=== PATIENT | female | born 1960 ===

== ENCOUNTER 2024-05-29 23:21 | Inpatient (IN) | payer OTHER ==
[~2024-05-29] VITALS: Ht 160 cm; Wt 159.0 kg
[2024-05-29] MEDS ORDERED: Morphine Sulfate 4 MG/1 ML Injection IV ONE (23:30)
[2024-05-29] MEDS ORDERED: NS 1,000 ML IV SCH (23:30)
[2024-05-29] MEDS ORDERED: Ondansetron HCl 2 MG / ML 2ML Vial IV ONE (23:30)
[2024-05-30 00:50] LABS: BASOPHILS ABSOLUTE AUTO 0.02 K/mm3 (0.00-0.23); BASOPHILS PERCENT AUTO 0 % (0-2); EOSINOPHILS ABSOLUTE AUTO 0.14 K/mm3 (0.00-0.68); EOSINOPHILS PERCENT AUTO 1 % (0-6); Hematocrit 38.2 % (33.0-51.0); Hemoglobin 11.9 g/dL (11.5-16.0); IMMATURE GRAN ABSOLUTE AUTO 0.03 K/mm3 (0.00-0.10); IMMATURE GRAN PERCENT AUTO 0 % (0-1); LYMPHOCYTES PERCENT AUTO 5 % (21-46); MONOCYTES ABSOLUTE AUTO 0.46 K/mm3 (0.16-1.47); MONOCYTES PERCENT AUTO 4 % (4-13); Mean Corpuscular HGB 24.8 pg (26.0-34.0); Mean Corpuscular HGB Conc 31.2 g/dL (31.5-36.5); Mean Corpuscular Volume 80 fL (80-100); Mean Platelet Volume 9.1 fL (9.1-12.4); NEUTROPHILS ABSOLUTE AUTO 9.42 K/mm3 (1.96-9.15); NEUTROPHILS PERCENT AUTO 89 % (41-73); Platelet Count 217 K/mm3 (150-400); RDW Coefficient Variation 22.8 % (11.7-14.2); RDW Standard Deviation 66.4 fL (35.1-46.3); White Blood Cell Count 10.57 K/mm3 (4.00-11.30)
[2024-05-30 01:16] LABS: Magnesium, Blood 2.1 mg/dL (1.6-2.4)
[2024-05-30 01:20] LABS: Albumin, Blood 3.4 g/dL (3.4-5.0); Albumin/Globulin Ratio 0.6 (0.8-1.8); Bilirubin, Total 0.8 mg/dL (0.1-1.0); Bun/Creatinine Ratio 19.8 (12.0-20.0); Calcium, Blood 6.3 mg/dL (8.5-10.1); Creatinine, Blood 8.94 mg/dL (0.40-1.00); Globulin, Blood 6.1 g/dL (2.2-4.0); Potassium, Blood 7.3 mmol/L (3.5-5.5); Total Protein, Blood 9.5 g/dL (6.4-8.2)
[2024-05-30] MEDS ORDERED: Sodium Zirconium Cyclosilicate 10 GM Packet PO ONE (01:20)
[2024-05-30] MEDS ORDERED: Calcium Gluconate 10% 100 MG/ML INJ IV ONE (01:20)
[2024-05-30] MEDS ORDERED: Dextrose 50% 50 ML Syringe IV ONE (01:20)
[2024-05-30] MEDS ORDERED: Insulin Regular 100 Unit/ML 1ML Dose IV ONE (01:20)
[2024-05-30] MEDS ORDERED: Albuterol 2.5 MG/3 ML VIAL INH SCH (01:20)
[2024-05-30] MEDS ORDERED: Furosemide 10 MG/ML 4ML Vial IV ONE (01:20)
[2024-05-30] MEDS ORDERED: Dextrose 50% 50 ML Vial IV ONE (01:35)
[2024-05-30] MEDS ORDERED: CALCIUM GLUC IN NACL, ISO-OSM 50 ML IV ONE (01:45)
[2024-05-30 03:55] LABS: Bun/Creatinine Ratio 19.9 (12.0-20.0); Calcium, Blood 6.2 mg/dL (8.5-10.1); Creatinine, Blood 8.65 mg/dL (0.40-1.00)
[2024-05-30 03:59] LABS: Potassium, Blood 5.3 mmol/L (3.5-5.5)
[2024-05-30] MEDS ORDERED: NS 1,000 ML IV SCH ×3 (04:45→06:35)
[2024-05-30] MEDS ORDERED: ZINC OXIDE57 GM TOP (04:49)
[2024-05-30] MEDS ORDERED: ACET325 PO (04:50)
[2024-05-30] MEDS ORDERED: BISA5EC PO (04:51)
[2024-05-30] MEDS ORDERED: BUME2 PO (04:51)
[2024-05-30] MEDS ORDERED: DICLOFENAC SOD100 GM TP (04:52)
[2024-05-30] MEDS ORDERED: Lisinopril2.5 MG PO (04:53)
[2024-05-30] MEDS ORDERED: DOXE10 PO (04:53)
[2024-05-30] MEDS ORDERED: MIRALAX17 GM PO (04:53)
[2024-05-30] MEDS ORDERED: Percocet 5-3251 EACH PO (04:55)
[2024-05-30] MEDS ORDERED: ONDA4ODT MM (04:55)
[2024-05-30] MEDS ORDERED: KLAYESTA15 GM TP (04:55)
[2024-05-30] MEDS ORDERED: POTA10T PO (04:56)
[2024-05-30] MEDS ORDERED: SERT100 PO (04:56)
[2024-05-30] MEDS ORDERED: ROPI1 PO (04:56)
[2024-05-30] MEDS ORDERED: SPIR50 PO (04:57)
[2024-05-30] MEDS ORDERED: Ondansetron HCl 2 MG / ML 2ML Vial IV PRN (05:20)
[2024-05-30] MEDS ORDERED: FentaNYL Citrate 50 MCG/ML 2 ML Injection IV PRN (05:30)
[2024-05-30 05:55] VITALS: BP 138/101
[2024-05-30 05:55] LABS: Bun/Creatinine Ratio 19.5 (12.0-20.0); Calcium, Blood 6.5 mg/dL (8.5-10.1); Creatinine, Blood 8.81 mg/dL (0.40-1.00); Potassium, Blood 5.1 mmol/L (3.5-5.5)
--- NOTE | 2024-05-30 07:42 | NUR ---
ADMISSION NOTE REPORT RECIVED BY THIS RN FROM [facility] @ [facility]18 PT ARRIVED TO PCU 20 @ [facility] 0533, WAS SLID OVER TO PCU BED BY MEDICAL STAFF PT IS ALERT, HOLDING CONVERSATION, MOVING ALL EXTREMITIES, OBEYS COMMANDS, ABLE TO MAKE NEEDS KNOWN, VSS.
[2024-05-30] MEDS ORDERED: MELO7.5 PO (08:26)
[2024-05-30] MEDS ORDERED: EPIPEN0.3 MG/0.3 IM (08:27)
[2024-05-30] MEDS ORDERED: WEGOVY2.4 MG/0.7 SC (08:29)
[2024-05-30] MEDS ORDERED: METO5 PO (08:30)
[2024-05-30 09:02] LABS: Albumin, Blood 3.1 g/dL (3.4-5.0); Anion Gap 21 mmol/L (3-11); Blood Urea Nitrogen 165 mg/dL (8-24); Bun/Creatinine Ratio 18.1 (12.0-20.0); CO2, Blood 23 mmol/L (21-32); Calcium, Blood 6.3 mg/dL (8.5-10.1); Chloride, Blood 85 mmol/L (98-108); Glomerular Filtration Rate 5 (60-); Glucose, Blood 94 mg/dL (70-99); Phosphorus, Blood 9.7 mg/dL (2.5-4.9); Sodium, Blood 124 mmol/L (136-145)
[2024-05-30 11:47] VITALS: BP 95/71
--- NOTE | 2024-05-30 11:52 | NUR ---
DR. PETTY ROUNDING: PROVIDER WANTS THE LAB RESULTS FROM THE 1100 PENDING LABS. STAT CREATININE 1800, INCREASE FLUIDS TO 150 UNTIL 1900 AND CALLED WITH THE STAT CREATININE.
[2024-05-30 12:06] LABS: Albumin, Blood 3.1 g/dL (3.4-5.0); Anion Gap 20 mmol/L (3-11); Blood Urea Nitrogen 173 mg/dL (8-24); Bun/Creatinine Ratio 18.4 (12.0-20.0); CO2, Blood 23 mmol/L (21-32); Calcium, Blood 6.3 mg/dL (8.5-10.1); Chloride, Blood 86 mmol/L (98-108); Glomerular Filtration Rate 4 (60-); Glucose, Blood 102 mg/dL (70-99); Phosphorus, Blood 10.1 mg/dL (2.5-4.9); Potassium, Blood 5.5 mmol/L (3.5-5.5); Sodium, Blood 123 mmol/L (136-145)
[2024-05-30 12:07] LABS: Bun/Creatinine Ratio 18.5 (12.0-20.0); Creatinine, Blood 9.12 mg/dL (0.40-1.00); Potassium, Blood 5.5 mmol/L (3.5-5.5)
[2024-05-30 12:08] LABS: Calcium, Blood 5.9 mg/dL (8.5-10.1)
[2024-05-30] MEDS ORDERED: Sodium Zirconium Cyclosilicate 10 GM Packet PO SCH (12:25)
[2024-05-30] MEDS ORDERED: Calcium Acetate 667 MG Gel Cap PO SCH (12:30)
[2024-05-30 12:54] LABS: Base Excess Venous -2.4 mmol/L; Bicarbonate Venous 21.8 mmol/L (24.0-30.0); PCO2 Venous 53.6 mmHg (38-42)
[2024-05-30 12:55] LABS: pH Blood Venous 7.27 (7.34-7.37)
[2024-05-30] MEDS ORDERED: Sodium Bicarbonate 650 MG Tab PO SCH (13:35)
[2024-05-30 16:21] VITALS: BP 88/50
--- NOTE | 2024-05-30 16:41 | NUR ---
EOS: PATIENT THROUGH THE DAY HAS BEEN NAUSEATED AT TIMES, ALERT AND ORIENTED X 4, ABLE TO MAKE NEEDS KNOWN, BED BATHED BY PCT, WITH CATHETER CARE. PATIENT HAS START OF 24 HOUR URINE AT 1607. PATIENT HAS SOME MINOR HEALTH CARE LITERACY. EDCUATED WELL ABOUT POTENTIAL NEEDS FOR PERMACATH AND ECHOCARDIOGRAM THAT DR. PETTY ORDERED AND WHY. LABS HAVE REMIANED TO TREND UP AND URINE OUTPUT VERY MINISCLE, DR. PETTY AWARE. NPO 0000 FOR POTENTIAL PERMACATH CONSULT CALLED TO ANSWERING SERVICE THIS AM. DENIES CHEST PAIN PRESSURE OR SOB. SOME MINOR DYSPNEA WITH EXERTION. PATIENT HAS HAD SOME IRREGUALR READINGS ON AUTOMATIC BLOOD PRESSURE CUFF, MOST CONSISTENT READINGS ON ZO MANUAL WHERE MAP >60. STILL INFUSING NS. PO LOKELMA, CALCIAUM ACETATE, AND SODIUM BICARB STARTED BY DR. PETTY. PATIENT IS HIGH RISK FOR DETERIORATION. STABLE AT TIME OF NOTE. NO ACUTE CONCERNS NOT ADDRESSED.
[2024-05-30 17:16] LABS: Source, Urine Clean Catch
[2024-05-30 17:22] LABS: Appearance, Urine Cloudy (Clear); Bilirubin, Urine Neg (Neg); Blood, Urine 4+ (Neg); Color, Urine Yellow (P-Yellow); Glucose Qualitative, Urine Neg (Neg); Ketones, Urine Neg (Neg); Leukocyte Esterase, Urine 3+ (Neg); Nitrite, Urine Neg (Neg); Protein, Urine 3+ (Neg); Urobilinogen, Urine NORM (Normal)
[2024-05-30 17:30] LABS: Amorphous Light (0-Heavy); Bacteria Many /hpf; White Blood Cells, Urine 50-100 /hpf (0-5)
[2024-05-30 17:31] LABS: Squamous Epithelial Cells Mod /hpf (Few)
[2024-05-30] MEDS ORDERED: Bisacodyl 5 MG TabEC PO PRN (18:00)
[2024-05-30] MEDS ORDERED: Polyethylene Glycol 3350 17 gm PO PRN (18:00)
[2024-05-30] MEDS ORDERED: Acetaminophen 325 MG TABLET PO PRN (18:00)
[2024-05-30] MEDS ORDERED: Doxepin HCL 10 MG CAP PO PRN (18:00)
[2024-05-30] MEDS ORDERED: Midodrine 5 MG Tab PO SCH (19:20)
[2024-05-30] MEDS ORDERED: Sertraline HCl 100 MG Tab PO SCH (21:00)
[2024-05-30] MEDS ORDERED: rOPINIRole HCl 0.25 MG Tab PO SCH (21:00)
[2024-05-30] MEDS ORDERED: Miconazole Nitrate 2% 85 GM PWD TOP SCH (21:00)
[2024-05-30 21:07] VITALS: BP 90/45
[2024-05-31] VITALS: BP 84/58
[2024-05-31] MEDS ORDERED: Calcium Carbonate 500 MG Tab Chew PO PRN (01:20)
[2024-05-31 04:04] VITALS: BP 104/61
[2024-05-31 06:06] LABS: BASOPHILS ABSOLUTE AUTO 0.03 K/mm3 (0.00-0.23); BASOPHILS PERCENT AUTO 0 % (0-2); EOSINOPHILS ABSOLUTE AUTO 0.37 K/mm3 (0.00-0.68); EOSINOPHILS PERCENT AUTO 5 % (0-6); Hematocrit 32.8 % (33.0-51.0); Hemoglobin 10.2 g/dL (11.5-16.0); IMMATURE GRAN ABSOLUTE AUTO 0.03 K/mm3 (0.00-0.10); IMMATURE GRAN PERCENT AUTO 0 % (0-1); LYMPHOCYTES ABSOLUTE AUTO 0.61 K/mm3 (0.84-5.20); LYMPHOCYTES PERCENT AUTO 8 % (21-46); MONOCYTES ABSOLUTE AUTO 0.39 K/mm3 (0.16-1.47); MONOCYTES PERCENT AUTO 5 % (4-13); Mean Corpuscular HGB 25.2 pg (26.0-34.0); Mean Corpuscular HGB Conc 31.1 g/dL (31.5-36.5); Mean Corpuscular Volume 81 fL (80-100); NEUTROPHILS ABSOLUTE AUTO 6.35 K/mm3 (1.96-9.15); NEUTROPHILS PERCENT AUTO 82 % (41-73); Platelet Count 172 K/mm3 (150-400); RDW Coefficient Variation 23.3 % (11.7-14.2); RDW Standard Deviation 68.9 fL (35.1-46.3); Red Blood Cell Count 4.05 M/mm3 (3.80-5.20); White Blood Cell Count 7.78 K/mm3 (4.00-11.30)
--- NOTE | 2024-05-31 06:20 | NUR ---
PT CONTINUES TO HAVE SOFT BP BUT HAVE IMPROVED ON MIDODRINE. PT IS ASYMPTOMATIC WITH SOFT BP, REMAINS AOX4, NO CONFUSION, DIZZINESS/LIGHTHEADEDNESS. PT HAS CARABALLO IN PLACE AND HAS MADE SOME URINE, APPROXIMATELY 250ML. CARABALLO COLLECTION BAG REMAINS ON ICE FOR 24HR URINE. PT OTHER VITAL SIGNS REMAIN WNL. PT DID REQUIRE SUPPLEMENTAL O2 WHILE SLEEPING. PT REPOSITIONED Q2 BUT REMAINED UNCOMFORTABLE OVERALL. PT MADE NPO AT MIDNIGHT FOR PROCEDURE TODAY. PT DID C/O HEARTBURN AND WAS GIVEN TUMS WITH GOOD EFFECT. IV FLUIDS CHANGED FROM 75ML/HR TO 50ML/HR AT MIDNIGHT PER ORDER. PT TOLERATING IV FLUIDS WELL.
[2024-05-31 06:40] LABS: Magnesium, Blood 1.9 mg/dL (1.6-2.4); Thyroid Stimulating Hormone 3.36 uIU/mL (0.360-4.800)
[2024-05-31 07:08] LABS: Albumin, Blood 2.9 g/dL (3.4-5.0); Albumin/Globulin Ratio 0.5 (0.8-1.8); Bilirubin, Total 0.6 mg/dL (0.1-1.0); Calcium, Blood 6.2 mg/dL (8.5-10.1); Globulin, Blood 5.3 g/dL (2.2-4.0); Phosphorus, Blood 9.7 mg/dL (2.5-4.9); Total Protein, Blood 8.2 g/dL (6.4-8.2)
[2024-05-31 07:09] LABS: Potassium, Blood 5.5 mmol/L (3.5-5.5)
[2024-05-31 07:10] LABS: Bun/Creatinine Ratio 19.1 (12.0-20.0); Creatinine, Blood 8.69 mg/dL (0.40-1.00)
[2024-05-31 07:54] VITALS: BP 83/60
[2024-05-31 11:06] VITALS: BP 89/73
[2024-05-31 13:02] LABS: Uric Acid, Blood 13.1 mg/dL (2.6-6.0)
[2024-05-31 13:57] LABS: Albumin, Blood 3.2 g/dL (3.4-5.0); Anion Gap 19 mmol/L (3-11); Blood Urea Nitrogen 164 mg/dL (8-24); Bun/Creatinine Ratio 18.9 (12.0-20.0); CO2, Blood 27 mmol/L (21-32); Calcium, Blood 6.1 mg/dL (8.5-10.1); Chloride, Blood 88 mmol/L (98-108); Creatinine, Blood 8.69 mg/dL (0.40-1.00); Glomerular Filtration Rate 5 (60-); Glucose, Blood 103 mg/dL (70-99); Phosphorus, Blood 8.7 mg/dL (2.5-4.9); Potassium, Blood 5.6 mmol/L (3.5-5.5); Sodium, Blood 128 mmol/L (136-145)
[2024-05-31] MEDS ORDERED: Midodrine 2.5 MG Tab PO SCH (14:00)
[2024-05-31 15:48] VITALS: BP 100/49
--- NOTE | 2024-05-31 16:24 | NUR ---
EOS: LAURENCE HAS BEEN ALERT AND ORIENTED X 4 REQUIRING OXYGEN MOST OF THE TIE, RANGING FROM .5 TO 2L WHILE SLEEPING, HR HAS REMAINED UNCHANGED DENIES CHEST PAIN PRESSURE, HOWEVER, THROUGH THE SHIFT HAS HAD SOME INCREASED SOB AT TIMES. BD PROTOCOL ORDERED FOR PATIENT AFTER TALKING WITH DR. JOYCE, REASSESSMENT OF LUNGS, WHEEZE PRESENT WORSE ON LEFT THAN RIGHT. BLOOD PRESSURE READING LOW FOR AM AND NOON, AND DIFFICULT TO GET CORRECT READING THIS EVENING, WAS ABLE TO OBTAIN EVENING BLOOD PRESSURE STILL LOW MAP>60 AND OK TO GIVE MIDODRINE LATE PER MD. PATIENT WITH CATH CARE BY PCT, HAS BEEN LIFT TO THE CHAIR FOR APPROXIMATELY 90 MINUTES TOELRATED POORLY. EDCUATED ON BED EXERSICES TO PREFORM . STILL WITHOUT BOWEL MOVEMENT DESPITE MIRALAX ADDED HER PRN BISACODYL. CPAP/BIPAP PROTOCOL ORDERED BY HOSPITALIST. SHOTGUN SHELL REPRINTING UNIT OPERATOR ORDERED SUPPLEMENTS. NO PERMACATH AT THIS TIME PRODUCED 1300 IN TOTAL FOR NIGHT AND THIS RN AT TIME OF NOTE. 24 HOUR COLLECTION SENT AND COLLECTED. NO MISSED URINE, PORTABLE CHEST XR 1 V PATIENT WITH INCREASED WHITE CLEAR SPUTUM. ECHO RESULTS ARE IN. PENDING CXR. PLAN OF CARE JESSE.
[2024-05-31] MEDS ORDERED: Albuterol 2.5 MG/3 ML VIAL INH PRN (17:05)
[2024-05-31 19:56] LABS: Protein, Urine Quantitative 66.8 mg/dL (0.0-11.9)
[2024-05-31 19:59] VITALS: BP 98/55
[2024-05-31] MEDS ORDERED: Heparin Sodium 5000 Units/ML 1ML MDV SC SCH (21:00)
[2024-06-01] VITALS (7 sets, daily range): BP systolic 92–137; BP diastolic 54–80
[2024-06-01] MEDS ORDERED: Prochlorperazine Edisylate 10 mg Vial IV PRN (01:40)
--- NOTE | 2024-06-01 03:46 | NUR ---
SHIFT SUMMURY: A/O X4. ON 02 VIA NC AT 3L WHILE SLEEPING WITH SATURATION >90. OCCASIONALLY DESATS TO 88 REQIRING ADJUSTMENT OF O2 BETWEEN .5 TO 3 L. SINUS RHYTHM 69. DENIES CHEST PAIN/ PRESSURE. BP STABLE WITH MAP >65. HAD AN EPISODE OF NAUSEA AND VOMITING. DECLINED ORDERED ZOFRAN STATED IT DOESNT WORK FOR HER. MD MADE AWARE/COMPAZINE ODERED AND ADMISTERED. DENIES NAUSEA AT THIS TIME. MEDICATED FOR BACK PAIN PER EMAR WITH RELIEF OF PAIN. REPOSITIONED Q 2 HOURS. NPO FOR POSSIBLE PERM CATH PLACEMENT. CARABALLO CATHERTER INTACT/ SUCURED/ AND DRAINING > 2L YELLOW URINE VIA GRAVITY. CALLS APPROPRIATELY/ CALL GROSS IS WITHIN REACH AND BED IS AT THE LOWERST POSITION.
[2024-06-01 05:08] LABS: BASOPHILS ABSOLUTE AUTO 0.03 K/mm3 (0.00-0.23); BASOPHILS PERCENT AUTO 0 % (0-2); EOSINOPHILS ABSOLUTE AUTO 0.34 K/mm3 (0.00-0.68); EOSINOPHILS PERCENT AUTO 4 % (0-6); Hemoglobin 10.6 g/dL (11.5-16.0); IMMATURE GRAN ABSOLUTE AUTO 0.03 K/mm3 (0.00-0.10); IMMATURE GRAN PERCENT AUTO 0 % (0-1); LYMPHOCYTES ABSOLUTE AUTO 0.45 K/mm3 (0.84-5.20); LYMPHOCYTES PERCENT AUTO 6 % (21-46); MONOCYTES ABSOLUTE AUTO 0.47 K/mm3 (0.16-1.47); MONOCYTES PERCENT AUTO 6 % (4-13); Mean Corpuscular HGB 24.8 pg (26.0-34.0); Mean Corpuscular HGB Conc 30.3 g/dL (31.5-36.5); Mean Corpuscular Volume 82 fL (80-100); Mean Platelet Volume 9.4 fL (9.1-12.4); NEUTROPHILS ABSOLUTE AUTO 6.54 K/mm3 (1.96-9.15); NEUTROPHILS PERCENT AUTO 83 % (41-73); Platelet Count 176 K/mm3 (150-400); RDW Standard Deviation 67.7 fL (35.1-46.3); Red Blood Cell Count 4.28 M/mm3 (3.80-5.20); White Blood Cell Count 7.86 K/mm3 (4.00-11.30)
[2024-06-01 05:32] LABS: Magnesium, Blood 1.9 mg/dL (1.6-2.4)
[2024-06-01 05:36] LABS: Albumin, Blood 3.1 g/dL (3.4-5.0); Albumin/Globulin Ratio 0.6 (0.8-1.8); Bilirubin, Total 0.9 mg/dL (0.1-1.0); Bun/Creatinine Ratio 22.3 (12.0-20.0); Calcium, Blood 6.6 mg/dL (8.5-10.1); Creatinine, Blood 7.07 mg/dL (0.40-1.00); Globulin, Blood 5.6 g/dL (2.2-4.0); Phosphorus, Blood 8.5 mg/dL (2.5-4.9); Potassium, Blood 4.6 mmol/L (3.5-5.5); Total Protein, Blood 8.7 g/dL (6.4-8.2)
[2024-06-01 08:50] LABS: Base Excess Venous 0.2 mmol/L; Bicarbonate Venous 23.6 mmol/L (24.0-30.0); PCO2 Venous 54.2 mmHg (38-42)
[2024-06-01] MEDS ORDERED: Sodium Bicarbonate 650 MG Tab PO SCH (09:00)
--- NOTE | 2024-06-01 16:52 | NUR ---
SHIFT SUMMARY PATIENT AOX4 ABLE TO MAKE NEEDS KWOWN, SHE DENIES CHEST PAIN OR SOB. HER BLOOD PRESSURE IS LABILE. SHE HAS CARABALLO IN PLACE AND ITS DRAINING CLEAR YELLOW URINE CARABALLO CARE COMPLETED. SHE IS TOLERATING HER MEALS. HER SATS ARE GREATER THAN 90% ON THE OXY MASK AT 3L. SHE DOES COMPLAIN OF RIGHT SHOULDER PAIN. SHE DID WORK WITH PHYSICAL THERAPY TODAY AND GOT IN THE CHAIR. CALL LIGHT IN REACH
[2024-06-01 22:00] LABS: GBM, IGG MULTIPLEX BEAD ASSAY 1 AU/mL (0-19); MYELOPEROXIDASE (MPO) AB,IGG 0 AU/mL (0-19); SERINE PROTEINASE 3 PR3 AB,IGG 2 AU/mL (0-19)
--- NOTE | 2024-06-01 23:00 | NUR ---
UPDATE PT CONTINUES TO REPORT MILD ABD DISCOMFORT AND NEED TO HAVE BM. ATTEMPTED BEDPAN, BUT PT WAS ONLY ABLE TO PASS GAS. ABLE TO FIND BIGGER BSC AND TRIALED PT WITH STANDING AND TRANSFERRING TO BSC. PT WAS ABLE TO STAND AND PIVOT TO BSC USING GAITBELT, FWW, NON-SLIP SOCKS, AND 2-3 STAFF ASSIST. WAS ABLE TO HAVE MEDIUM, BROWN, FIRM BM AND TRANSFER BACK TO BED
[2024-06-02] MEDS ORDERED: HYDROcodone 10-APAP 325 TAB PO PRN (00:35)
[2024-06-02 03:32] VITALS: BP 144/74
[2024-06-02 03:59] LABS: BASOPHILS ABSOLUTE AUTO 0.03 K/mm3 (0.00-0.23); BASOPHILS PERCENT AUTO 0 % (0-2); EOSINOPHILS ABSOLUTE AUTO 0.12 K/mm3 (0.00-0.68); EOSINOPHILS PERCENT AUTO 2 % (0-6); Hematocrit 35.6 % (33.0-51.0); Hemoglobin 10.9 g/dL (11.5-16.0); IMMATURE GRAN ABSOLUTE AUTO 0.03 K/mm3 (0.00-0.10); IMMATURE GRAN PERCENT AUTO 0 % (0-1); LYMPHOCYTES ABSOLUTE AUTO 0.47 K/mm3 (0.84-5.20); LYMPHOCYTES PERCENT AUTO 6 % (21-46); MONOCYTES ABSOLUTE AUTO 0.41 K/mm3 (0.16-1.47); MONOCYTES PERCENT AUTO 5 % (4-13); Mean Corpuscular HGB 25.2 pg (26.0-34.0); Mean Corpuscular HGB Conc 30.6 g/dL (31.5-36.5); Mean Corpuscular Volume 82 fL (80-100); Mean Platelet Volume 9.8 fL (9.1-12.4); NEUTROPHILS ABSOLUTE AUTO 6.55 K/mm3 (1.96-9.15); NEUTROPHILS PERCENT AUTO 86 % (41-73); Platelet Count 181 K/mm3 (150-400); RDW Coefficient Variation 22.9 % (11.7-14.2); RDW Standard Deviation 69.1 fL (35.1-46.3); Red Blood Cell Count 4.33 M/mm3 (3.80-5.20); White Blood Cell Count 7.61 K/mm3 (4.00-11.30)
[2024-06-02 04:27] LABS: Magnesium, Blood 1.9 mg/dL (1.6-2.4)
[2024-06-02 04:31] LABS: Albumin, Blood 3.3 g/dL (3.4-5.0); Albumin/Globulin Ratio 0.6 (0.8-1.8); Bilirubin, Total 0.7 mg/dL (0.1-1.0); Bun/Creatinine Ratio 27.9 (12.0-20.0); Calcium, Blood 7.3 mg/dL (8.5-10.1); Creatinine, Blood 4.34 mg/dL (0.40-1.00); Globulin, Blood 5.7 g/dL (2.2-4.0)
[2024-06-02 04:33] LABS: Phosphorus, Blood 5.3 mg/dL (2.5-4.9)
--- NOTE | 2024-06-02 04:59 | NUR ---
SHIFT SUMMURY: A/O X 4. BP STABLE MAP> 65. ON 3L NC SATURATION > 90. ASSISTED TO BE BEDSIDE COMMODE/3 PERSON ASSIST WITH A GAIT BELT AND WALKER. ABLE TO STAND AND PIVOT WITH SHUFFLED GAIT VERY SLOWLY. HAD A MEDIUM BM WITH A LITTLE BLOOD, PATIENT STATES POSSIBLE FROM STRAINING DURING BOWEL MOVEMENT. PROTECTIVE MEPELEX DRESSING PLACED ON THE COCCYX. NO BLEEDING NOTED AFTER THE BM. UO >2.5L. WAS UP IN CHAIR FOR 2 HOURS AT BEGINING OF SHIFT, THEN ASSISTED BACK TO BED WITH A LIFT. REQUESTED VICODIN STATES SHE TAKES IT AT BEDTIME AT HOME AND HELPS HER AXIETY. PHYSICIAM MADE AWARE AND MEDICATION ADMINISTERED PER EMAR. REPORTS RELIEF FROM ANXIETY AND IN GOOD SPIRIT. CALLS APPROPRIATELY. CALL GROSS WITHIN REACH AND BED IS AT THE LOWEST POSITION FOR SAFETY.
--- NOTE | 2024-06-02 07:15 | NUR ---
NURSE COMMUNICATION: IF PATIENT IS DISCHARDED TODAY, PATIENT IS TO F/U WITH DR. PETTY ON FRIDAY AT 2PM. ONCOMING NURSE MADE AWARE.
--- NOTE | 2024-06-02 07:20 | NUR ---
ASSUMPTION NOTE: THIS RN TO ASSUME CARE OF PATIENT. PATIENT AWAKE IN BED,WATCHING TV. DENIED ANY CHEST PAIN/PRESSURE. HAS CALL LIGHT WITHIN REACH & BED IN LOWEST POSITION, STATING NOTHING IS NEEDED AT THIS TIME.
[2024-06-02 07:53] VITALS: BP 155/71
[2024-06-02] MEDS ORDERED: NS 1,000 ML IV SCH (09:00)
[2024-06-02 10:07] LABS: ANA PATTERN Speckled; ANTINUCLEAR AB (ANA),HEP-2,IGG Detected (<1:80)
--- NOTE | 2024-06-02 10:48 | NUR ---
MD RESIDENT ROUNDED: RESIDENT ROUNDED AND CHATTED WITH PATIENT. PATIENT WOULD LIKE TO GO HOME AND EXPRESSED THAT TO MD. MD NOTIFIED HER IT WOULDN'T BE UNITL A COUPLE OF DAYS. THIS RN MENTIONED THE VAGINAL BLEEDING, MD GAVE NO NEW ORDERS TO MONITOR AND ENSURE IT DOES NOT GET ANY WORSE. THIS RN WILL TAKE OUT CARABALLO AND PLACE A PUREWICK PATIENT IS CONTINENT.
[2024-06-02 11:47] VITALS: BP 153/92
--- NOTE | 2024-06-02 11:48 | NUR ---
TRANSFER NOTE: PATIENT WAS TRANSFFERED TO MEICAL FLOOR VIA BED. TOOK ALL PERSONAL BELONGINGS WITH HER. FLUIDS WRE BROUGHT WITH TO START AGAIN. PATIENT IS ALERT AND ORIETNED X4 & ON TELE, THAT IS BEING MONITORED. CARABALLO WAS TAKEN OUT AND A PUREWICK WAS PLACED INSTEAD.
--- NOTE | 2024-06-02 15:53 | NUR ---
PT TRANSFER TO MEDICAL FLOOR. LIFT ASSIST REQUIRED. ALERT AND ORIENTED X4, CALLS APPROPRIATELY. COOPERATIVE WITH CARES, CONT WITH BEDPAN.
[2024-06-02 16:07] VITALS: BP 120/86
[2024-06-02 19:35] VITALS: BP 141/85
[2024-06-03 00:12] VITALS: BP 153/90
--- NOTE | 2024-06-03 04:18 | NUR ---
SHIFT SUMMARY PT IS A/O X3-4, FORGETFUL, REPORTS HEARING MUSIC IN THE HOSPITAL ROOM, AND ASKING MULTIPLE TIMES IF SOMEONE IS IN HER HOSPITAL ROOM OTHER THAN STAFF MEMBERS ASSISTING HER. SOME YELLING TOWARDS STAFF, YELLING INSTEAD OF USING THE CALL LIGHT. PT IS LABILE IN MOODS, COOPERATIVE AND SUDDENLY SHORT WITH THE STAFF. MULTIPLE TIMES ASSISTED TO THE BEDPAN, NO BM DURING THIS SHIFT. PT DENIES A NEED FOR A BOWEL CARE MEDICATIONS. PT REFUSED THE BROWN COW WELL. PT IS 2-3 PERSON ASSIST WITH THE BEDPAN/ROLLING IN BED ON THE SIDE. LIFT PT. PUREWICK IN PLACE DRAINING RED COLOR URINE @[facility]. CLEARED TOWARDS AM HRS TO YELLOW COLOR URINE. EARLY AM HRS PT STATING "I'M GOING TO GET OUT OF BED MYSELF THEN". REDIRECTED. BED ALARM FOR SAFETY. PT TURNING OFF THE IV PUMP D/T "ANNOYING NOISE". REDIRECTED AND PUMP PULLED AWAY FROM PT'S CLOSE PROXIMITY. PT DISCONNECTING O2 CONTINUOUS PULSE OXIMETER AND TAKES OFF THE NASAL CANNULA.O2 @2L,S AT'S>96%. PT DENIES SOB. NS INFUSING ORDERED. PRN NORCO @[facility] FOR C/O 08/19 BACKPAIN. BED AT THE LOWEST POSITION, CALL LIGHT W/I REACH. PT IS ABLE TO USE THE CALL LIGHT AND MAKE HER NEEDS KNOWN.
[2024-06-03 04:28] VITALS: BP 174/74
[2024-06-03 06:29] LABS: BASOPHILS ABSOLUTE AUTO 0.03 K/mm3 (0.00-0.23); BASOPHILS PERCENT AUTO 1 % (0-2); EOSINOPHILS PERCENT AUTO 5 % (0-6); Hemoglobin 11.7 g/dL (11.5-16.0); IMMATURE GRAN ABSOLUTE AUTO 0.05 K/mm3 (0.00-0.10); IMMATURE GRAN PERCENT AUTO 1 % (0-1); LYMPHOCYTES PERCENT AUTO 8 % (21-46); MONOCYTES ABSOLUTE AUTO 0.36 K/mm3 (0.16-1.47); MONOCYTES PERCENT AUTO 6 % (4-13); Mean Corpuscular HGB 25.2 pg (26.0-34.0); Mean Corpuscular HGB Conc 30.8 g/dL (31.5-36.5); Mean Corpuscular Volume 82 fL (80-100); NEUTROPHILS ABSOLUTE AUTO 4.82 K/mm3 (1.96-9.15); NEUTROPHILS PERCENT AUTO 80 % (41-73); RDW Coefficient Variation 22.7 % (11.7-14.2); RDW Standard Deviation 68.2 fL (35.1-46.3); Red Blood Cell Count 4.64 M/mm3 (3.80-5.20); White Blood Cell Count 6.06 K/mm3 (4.00-11.30)
[2024-06-03 06:43] LABS: Albumin, Blood 3.6 g/dL (3.4-5.0); Albumin/Globulin Ratio 0.6 (0.8-1.8); Bilirubin, Total 0.9 mg/dL (0.1-1.0); Calcium, Blood 8.3 mg/dL (8.5-10.1); Creatinine, Blood 2.1 mg/dL (0.40-1.00); Globulin, Blood 5.7 g/dL (2.2-4.0); Magnesium, Blood 1.5 mg/dL (1.6-2.4); Phosphorus, Blood 2.9 mg/dL (2.5-4.9); Potassium, Blood 3.5 mmol/L (3.5-5.5); Total Protein, Blood 9.3 g/dL (6.4-8.2)
[2024-06-03 06:49] LABS: Mean Platelet Volume 9.1 fL (9.1-12.4); Platelet Count 168 K/mm3 (150-400)
[2024-06-03] MEDS ORDERED: Magnesium Sulf 2 GM/Water 50ML 50 ML IV ONE (07:00)
--- NOTE | 2024-06-03 07:44 | NUR ---
ASSUMPTION OF CARE: ASSUMED CARE OF PATIENT. AWAKE ASLEEP DURING SHIFT CHANGE REPORT. LYING SUPINE IN BED. PULSE-OX ALARMING; SENSOR LYING IN BED; PT REFUSED WHEN ATTEMPTED TO REPLACE. STATED, "I WON'T BE HERE THAT LONG. BY IS COMING TO GET ME." REFUSED MORNING VITALS AND MAG. DR MONTERROSO NOTIFIED. BED IN LOWEST POSITION. CALL LIGHT WITHIN REACH.
[2024-06-03 08:10] VITALS: BP 154/77
--- NOTE | 2024-06-03 14:09 | NUR ---
PT DISCHARGED THE PT WAS GIVEN DC INSTRUCTIONS BY HER PRIMARY NURSE. THE PT WAS TRANSFERED VIA [facility] WHEELCHAIR ACCOMPANIED BY THIS RN AND THE COMPRESSOR ENGINEER TO MEET HER AT THE FRONT. THE PT INSISTED THAT SHE WAS DRIVING AND HER AGREED TO THAT. THE PT WAS ABLE TO GET INTO THE FRONT SEAT WITH MUCH DIFFICUTLY.
--- NOTE | 2024-06-03 17:02 | NUR ---
DISCHARGE SUMMARY: A&Ox4. COOPERATIVE WITH MOST CARE. CALLS APPROPRIATELY AND IS ABLE TO ADVOCATE NEEDS EFFECTIVELY. UNABLE TO AMBULATE OR STAND-PIVOT. CONTINENT OF BOWEL AND INCONTINENT OF BLADDER; LBM 06/02/24. MEDS WHOLE c FLUIDS. TELE SINUS TACH @ [facility] & PVCs @ 111. PAIN 4/10 IN RIGHT SHOULDER. BEGAN SHIFT THREATENING TO LEAVE AMA. REFUSED RETURN TO SNF; HAD GO RETREIVE BELONGINGS FROM [facility]. WHEN ATTEMPTING TO PIVOT TO WHEELCHAIR TO LEAVE, SHE WAS UNABLE AND REQUESTED USE OF DOUBLE CEILING LIFT. BREAK NURSE c DIFFICULTY TRANSFERRING TO CAR. PT INSISTED ON DRIVING HOME TO [place]. PROVIDER NOTIFIED. MEDICATIONS FAXED TO [facility]. INSTRUCTED TO FOLLOW-UP WITH PCP. LEFT FLOOR WITH ALL BELONGINGS AND DISCHARGE PACKET, ESCORTED BY BRIANDA SADLER AND MARINA BRANDON. TRANSPORTATION PROVIDED BY [facility].
[2024-06-03 19:19] LABS: ALBUMIN %,URINE 34.7 %; ALPHA-1 %,URINE 5.5 %; ALPHA-2 %,URINE 9.8 %; BETA GLOBULIN %,URINE 18.8 %; GAMMA GLOBULIN %,URINE 31.2 %; HOURS COLLECTED 24 hr; TOTAL VOLUME 1400 mL
== END 2024-06-03 13:54 | disposition home health service (06) | DRG 683 ==
LOC: ER 23:21 → ERHOLD 05-30 04:16 → PCU 05-30 04:16 → MEDS 06-02 11:33
PROVIDERS: Emergency Medicine; Internal Medicine; Internal Medicine Nephrology; ADMIT Internal Medicine
PROC: 0T9B70Z Drainage of Bladder with Drainage Device, Via Natural or Artificial Opening (ICD-10-PCS; principal; 2024-05-30)
PROC: 5A1D70Z Performance of Urinary Filtration, Intermittent, Less than 6 Hours Per Day (ICD-10-PCS; 2024-05-31)
DX: N17.0 Acute kidney failure with tubular necrosis (principal); E87.1 Hypo-osmolality and hyponatremia; I13.0 Hypertensive heart and chronic kidney disease with heart failure and stage 1 through stage 4 chronic kidney disease, or unspecified chronic kidney disease; I50.32 Chronic diastolic (congestive) heart failure; Z68.44 Body mass index [BMI] 60.0-69.9, adult; E87.20 Acidosis, unspecified; E66.01 Morbid (severe) obesity due to excess calories; G47.33 Obstructive sleep apnea (adult) (pediatric); E83.51 Hypocalcemia; E83.39 Other disorders of phosphorus metabolism; I44.7 Left bundle-branch block, unspecified; E87.5 Hyperkalemia; I25.10 Atherosclerotic heart disease of native coronary artery without angina pectoris; N18.9 Chronic kidney disease, unspecified; D63.1 Anemia in chronic kidney disease; E86.0 Dehydration; E86.9 Volume depletion, unspecified; B37.2 Candidiasis of skin and nail; K59.09 Other constipation; I95.9 Hypotension, unspecified; B18.2 Chronic viral hepatitis C; F41.8 Other specified anxiety disorders; B96.20 Unspecified Escherichia coli [E. coli] as the cause of diseases classified elsewhere; Z79.51 Long term (current) use of inhaled steroids; Z79.899 Other long term (current) drug therapy; Z91.030 Bee allergy status; Z85.42 Personal history of malignant neoplasm of other parts of uterus; Z79.811 Long term (current) use of aromatase inhibitors
CPT/HCPCS: 36415; 51702; 71045; 73030; 74176; 76770; 80048; 80053; 80069; 81001; 82140; 82533; 82550; 82565; 82803; 82947; 83516; 83690; 83735; 84100; 84156; 84166; 84443; 84550; 85025; 86039; 86334; 86335; 87077; 87086; 87186; 93005; 93010; 94644; 94664; 94760; 94762; 96374-59; 96375-59; 97110; 97162; 97530; 99285-25; A9270; C8929; J0612; J0780; J1644; J1815; J1940; J2270; J2405; J3010; J7030; Q9957